=== PATIENT | female | born 1960 | race Asian ===

== ENCOUNTER 2023-07-07 15:16 | Inpatient (IN) | payer OTHER ==
[~2023-07-07] VITALS: Ht 160 cm; Wt 73.6 kg
[2023-07-07 15:53] LABS: BASOPHILS % (AUTO) 0.8 % (0.0-2.0); EOSINOPHILS % (AUTO) 2.2 % (1.0-6.0); HEMOGLOBIN 12.7 g/dL (12.0-16.0); LYMPHOCYTES # (AUTO) 3.3 K/uL (1.0-4.8); LYMPHOCYTES % (AUTO) 29.4 % (22.0-44.0); MEAN CORPUSCULAR HGB CONC 32.5 G/dL (31.0-37.0); MEAN CORPUSCULAR VOLUME 92 fL (80-100); MONOCYTES % (AUTO) 9.1 % (2.0-9.0); NEUTROPHILS # (AUTO) 6.6 K/uL (1.8-7.7); NEUTROPHILS % (AUTO) 58.5 % (40.0-70.0); PLATELET COUNT (AUTO) 325 K/uL (150-450); RED BLOOD CELL COUNT(AUTO) 4.22 MIL/uL (4.00-5.20); WHITE BLOOD COUNT (AUTO) 11.3 K/uL (4.5-11.0)
[2023-07-07 16:06] LABS: TROPONIN I-HIGH SENSITIVITY 18 ng/L (<51)
[2023-07-07 16:14] LABS: APPEARANCE,URINE HAZY (CLEAR); BILIRUBIN,URINE NEGATIVE (NEGATIVE); COLOR,URINE COLORLESS (YELLOW); GLUCOSE, URINE (UA) NEGATIVE (NEGATIVE); KETONES,URINE NEGATIVE (NEGATIVE); LEUKOCYTE ESTERASE ,URINE NEGATIVE (NEGATIVE); NITRATE,URINE NEGATIVE (NEGATIVE); OCCULT BLOOD,URINE NEGATIVE (NEGATIVE); PROTEIN,URINE NEGATIVE (NEGATIVE); UROBILINOGEN,URINE <=1.0 mg/dL (<=1.0)
[2023-07-07] MEDS ORDERED: LABETALOL HCL 5 MG/ML 20 ML VIAL IVP ONE (16:15)
[2023-07-07 16:24] LABS: AMPHET/METH SCREEN,URINE NEGATIVE (NEGATIVE); BARBITURATE SCREEN, URINE NEGATIVE (NEGATIVE); BENZODIAZEPINES SCREEN,URINE NEGATIVE (NEGATIVE); CANNABINOID SCREEN,URINE NEGATIVE (NEGATIVE); COCAINE SCREEN,URINE NEGATIVE (NEGATIVE); METHADONE SCREEN, URINE NEGATIVE (NEGATIVE); OPIATE SCREEN,URINE NEGATIVE (NEGATIVE); PHENCYCLIDINE SCREEN,URINE NEGATIVE (NEGATIVE)
[2023-07-07 16:26] LABS: ALCOHOL, URINE DRUG SCREEN NEGATIVE (NEGATIVE)
[2023-07-07 16:28] LABS: CALCIUM, TOTAL 8.7 mg/dL (8.8-10.5); CREATININE 1.06 mg/dL (0.60-1.30); POTASSIUM 3.4 mmol/L (3.5-5.1)
[2023-07-07 16:43] LABS: ALBUMIN 3.1 g/dL (3.4-5.0); BILIRUBIN,TOTAL 0.2 mg/dL (0.1-1.0); TOTAL PROTEIN, SERUM 6.9 g/dL (6.4-8.2)
[2023-07-07] MEDS ORDERED: GLUCAGON,HUMAN RECOMBINANT 1 MG VIAL IM PRN (17:15)
[2023-07-07] MEDS ORDERED: NITROGLYCERIN 0.4 MG SUBLINGUAL TABLET #25 SL PRN (17:15)
[2023-07-07] MEDS ORDERED: ENALAPRILAT DIHYDRATE 2.5 MG/2 ML VIAL IVP PRN (17:15)
[2023-07-07] MEDS ORDERED: POTASSIUM CHLORIDE 20 MEQ ER TABLET PO ONE (17:15)
[2023-07-07] MEDS ORDERED: DEXTROSE 50%-WATER 25 GM/50 ML SYRINGE IVP PRN (17:30)
[2023-07-07] MEDS: ASPIRIN 81 MG CHEWABLE TABLET PO SCH (17:34)
[2023-07-07 17:56] LABS: TROPONIN I-HIGH SENSITIVITY 20 ng/L (<51)
[2023-07-07] MEDS: METOPROLOL TARTRATE 25 MG TABLET PO SCH (20:29)
[2023-07-07] MEDS: INSULIN LISPRO 100 UNITS/ML SQ PRN (20:43)
[2023-07-07 22:20] VITALS: BP 134/49; PULSE 88; RESP 18; TEMP 99
[2023-07-07 22:21] LABS: GLUCOMETER DEV NAME(LOC) 5S.2C; GLUCOSE,POINT OF CARE 218 MG/DL (70-110)
[2023-07-08] VITALS (7 sets, daily range): BP systolic 127–176; BP diastolic 52–89; PULSE 60–87; RESP 18; TEMP 97.9–98.2; O2SAT 98
[2023-07-08 07:23] LABS: BASOPHILS % (AUTO) 0.9 % (0.0-2.0); HEMOGLOBIN 12.8 g/dL (12.0-16.0); LYMPHOCYTES # (AUTO) 3.5 K/uL (1.0-4.8); LYMPHOCYTES % (AUTO) 34.7 % (22.0-44.0); MEAN CORPUSCULAR HEMOGLOBIN 31.2 pg (26.0-34.0); MEAN CORPUSCULAR HGB CONC 33.8 G/dL (31.0-37.0); MEAN CORPUSCULAR VOLUME 92 fL (80-100); MONOCYTES # (AUTO) 0.9 K/uL (0.1-1.0); MONOCYTES % (AUTO) 8.6 % (2.0-9.0); NEUTROPHILS # (AUTO) 5.3 K/uL (1.8-7.7); NEUTROPHILS % (AUTO) 52.8 % (40.0-70.0); PLATELET COUNT (AUTO) 313 K/uL (150-450); RED BLOOD CELL COUNT(AUTO) 4.12 MIL/uL (4.00-5.20)
[2023-07-08 07:39] LABS: ANION GAP 8 mmol/L (8-16); CALCIUM, TOTAL 8.4 mg/dL (8.8-10.5); CARBON DIOXIDE 29 mmol/L (22-29); CHLORIDE 103 mmol/L (98-107); CHOL/HDL RATIO 4.4 (3.9-5.7); CHOLESTEROL 176 mg/dL (131-200); CREATININE 0.91 mg/dL (0.60-1.30); GLOMERULAR FILTR. RATE CALC > 60 mL/min (>60); GLUCOSE,RANDOM 142 mg/dL (70-110); HDL CHOLESTEROL 40 mg/dL (40-60); LDL CHOL (CALC.) 86 mg/dL (0-130); POTASSIUM 3.2 mmol/L (3.5-5.1); SODIUM SERUM 140 mmol/L (136-145); TRIGLYCERIDES 250 mg/dL (15-150); UREA NITROGEN, BLOOD 18 mg/dL (7-18)
[2023-07-08] MEDS: LISINOPRIL 5 MG TABLET PO SCH (08:10)
[2023-07-08] MEDS: ASPIRIN 81 MG CHEWABLE TABLET PO SCH (08:10)
[2023-07-08] MEDS: METOPROLOL TARTRATE 25 MG TABLET PO SCH ×2 (08:10→21:07)
[2023-07-08] MEDS ORDERED: POTASSIUM CHL 10 MEQ/WATER 50 ML IV PRN (08:45)
[2023-07-08 08:46] LABS: GLUCOMETER DEV NAME(LOC) 5N.1C; GLUCOSE,POINT OF CARE 137 MG/DL (70-110)
[2023-07-08] MEDS: POTASSIUM CHLORIDE 20 MEQ ER TABLET PO PRN (09:12)
[2023-07-08] MEDS: AmLODIPine BESYLATE 5 MG TABLET PO SCH ×2 (09:12→21:07)
[2023-07-08] MEDS: ATORVASTATIN CALCIUM 40 MG TABLET PO SCH (09:12)
[2023-07-08] MEDS ORDERED: AMINOPHYLLINE 25 MG/ML 10 ML VIAL IVP PRN (09:15)
[2023-07-08] MEDS ORDERED: REGADENOSON 0.4 MG/5 ML PF SYRINGE IVP ONE (09:15)
[2023-07-08] MEDS ORDERED: SESTAMIBI TC99M/UD ISOTOPE 1 EA INJ INJ ONE ×2 (10:35→13:05)
[2023-07-08] MEDS: INSULIN LISPRO 100 UNITS/ML SQ PRN ×3 (11:32→21:16)
[2023-07-08 12:21] LABS: GLUCOMETER DEV NAME(LOC) 5N.2C; GLUCOSE,POINT OF CARE 165 MG/DL (70-110)
[2023-07-08] MEDS: HEPARIN SODIUM,PORCINE 5,000 UNITS/ML VIAL SQ SCH (16:18)
[2023-07-08 17:41] LABS: GLUCOMETER DEV NAME(LOC) 5N.2C; GLUCOSE,POINT OF CARE 194 MG/DL (70-110)
[2023-07-09] VITALS: BP 152/78; PULSE 62; RESP 18; TEMP 98.1
[2023-07-09 00:01] LABS: GLUCOMETER DEV NAME(LOC) 5N.2C; GLUCOSE,POINT OF CARE 201 MG/DL (70-110)
[2023-07-09] MEDS: HEPARIN SODIUM,PORCINE 5,000 UNITS/ML VIAL SQ SCH ×3 (00:40→16:05)
[2023-07-09 04:00] VITALS: BP 144/80; PULSE 60; RESP 18; TEMP 98
[2023-07-09] MEDS: INSULIN LISPRO 100 UNITS/ML SQ PRN ×2 (06:17→11:56)
[2023-07-09 07:05] LABS: BASOPHILS % (AUTO) 1.1 % (0.0-2.0); EOSINOPHILS % (AUTO) 3.6 % (1.0-6.0); HEMATOCRIT 38.7 % (36-46); HEMOGLOBIN 13.1 g/dL (12.0-16.0); LYMPHOCYTES # (AUTO) 3.6 K/uL (1.0-4.8); LYMPHOCYTES % (AUTO) 37.5 % (22.0-44.0); MEAN CORPUSCULAR HEMOGLOBIN 30.9 pg (26.0-34.0); MEAN CORPUSCULAR HGB CONC 33.8 G/dL (31.0-37.0); MEAN CORPUSCULAR VOLUME 91 fL (80-100); MONOCYTES # (AUTO) 0.8 K/uL (0.1-1.0); MONOCYTES % (AUTO) 8.4 % (2.0-9.0); NEUTROPHILS # (AUTO) 4.8 K/uL (1.8-7.7); NEUTROPHILS % (AUTO) 49.4 % (40.0-70.0); PLATELET COUNT (AUTO) 333 K/uL (150-450); RED BLOOD CELL COUNT(AUTO) 4.23 MIL/uL (4.00-5.20); RED CELL DISTRIBUTION WIDTH 12.8 % (11.5-14.5); WHITE BLOOD COUNT (AUTO) 9.6 K/uL (4.5-11.0)
[2023-07-09 07:13] LABS: ANION GAP 8 mmol/L (8-16); CALCIUM, TOTAL 8.4 mg/dL (8.8-10.5); CARBON DIOXIDE 28 mmol/L (22-29); CHLORIDE 103 mmol/L (98-107); CREATININE 0.79 mg/dL (0.60-1.30); GLOMERULAR FILTR. RATE CALC > 60 mL/min (>60); GLUCOSE,RANDOM 142 mg/dL (70-110); POTASSIUM 3.3 mmol/L (3.5-5.1); SODIUM SERUM 139 mmol/L (136-145); UREA NITROGEN, BLOOD 16 mg/dL (7-18)
[2023-07-09] MEDS: ASPIRIN 81 MG CHEWABLE TABLET PO SCH (08:21)
[2023-07-09] MEDS: AmLODIPine BESYLATE 5 MG TABLET PO SCH (08:21)
[2023-07-09] MEDS: LISINOPRIL 5 MG TABLET PO SCH (08:21)
[2023-07-09] MEDS: ATORVASTATIN CALCIUM 40 MG TABLET PO SCH (08:22)
[2023-07-09] MEDS: METOPROLOL TARTRATE 25 MG TABLET PO SCH (08:22)
[2023-07-09] MEDS: POTASSIUM CHLORIDE 20 MEQ ER TABLET PO PRN (08:29)
[2023-07-09 08:41] LABS: GLUCOMETER DEV NAME(LOC) 5N.2C; GLUCOSE,POINT OF CARE 157 MG/DL (70-110)
[2023-07-09 08:55] VITALS: BP 146/69; PULSE 75; RESP 18; TEMP 98
[2023-07-09] MEDS ORDERED: ESCITALOPRAM OXALATE 10 MG TABLET PO SCH (09:00)
[2023-07-09 12:43] LABS: MAGNESIUM 2.2 mg/dL (1.80-2.40); POTASSIUM 3.7 mmol/L (3.5-5.1)
[2023-07-09 16:00] VITALS: BP 161/83; PULSE 66; RESP 18; TEMP 98.2
[2023-07-09] MEDS ORDERED: ASPI81TA87 PO (18:39)
[2023-07-09] MEDS ORDERED: AMLO5TAB66 PO (18:39)
[2023-07-09] MEDS ORDERED: ESCI-8 PO (18:40)
[2023-07-09] MEDS ORDERED: ATOR80TA PO (18:40)
[2023-07-09] MEDS ORDERED: LISI-892 PO (18:41)
[2023-07-09] MEDS ORDERED: METO25TA6 PO (18:43)
[2023-07-09 23:32] LABS: GLUCOMETER DEV NAME(LOC) 5N.1C; GLUCOSE,POINT OF CARE 122 MG/DL (70-110)
[2023-07-09 23:32] LABS: GLUCOMETER DEV NAME(LOC) 5N.1C; GLUCOSE,POINT OF CARE 166 MG/DL (70-110)
== END 2023-07-09 18:50 | disposition home or self-care (01) | DRG 199 ==
LOC: EMS 15:17 → 5S 17:50
PROVIDERS: ADMIT Internal Medicine; ATTEND Internal Medicine
DX: I16.0 Hypertensive urgency (principal); R45.851 Suicidal ideations; R65.10 Systemic inflammatory response syndrome (SIRS) of non-infectious origin without acute organ dysfunction; F32.2 Major depressive disorder, single episode, severe without psychotic features; I20.9 Angina pectoris, unspecified; E87.6 Hypokalemia; E11.9 Type 2 diabetes mellitus without complications; I10 Essential (primary) hypertension; F17.210 Nicotine dependence, cigarettes, uncomplicated; E78.5 Hyperlipidemia, unspecified; Z88.5 Allergy status to narcotic agent; Z59.02 Unsheltered homelessness; Z80.1 Family history of malignant neoplasm of trachea, bronchus and lung
CPT/HCPCS: 71045; 78452; 80048; 80053; 80061; 80307; 81003; 82550; 82962; 83735; 83880; 84132; 84484; 85025; 93005; 93306; 99285; A9500; G0480; J1644; J3490; 36415-L1; 36415-TC